=== PATIENT | male | born 1955 | race Hispanic/Latino ===

== ENCOUNTER 2019-06-23 03:59 | Emergency (ER) | payer BC ==
--- NOTE | 2019-06-23 05:22 | Emergency Department Report ---
ED General Adult HPI - General Chief complaint: Dyspnea/Respdistress Stated complaint: HEART ISSUES Time Seen by Provider: 06/23/19 04:57 Source: patient Mode of arrival: Ambulatory Limitations: No Limitations - History of Present Illness Initial comments: Patient is a 64-year-old white male who presents for shortness of breath times today patient has history of coronary artery disease with stent hyperlipidemia patient is offered accident status post there is no hypertension or diabetes patient denies nausea vomiting or diaphoresis no back pain shortness of breath is exacerbated by stress patient rates symptoms at 2/10 at this time advised that his door advised him to present to ED for shortness of breath to rule out [place] patient however has no history of [place] Onset/Timin -: days(s) Severity scale (0 -10): 3 Quality: other (sob ) Improves with: none Worsens with: other (stress anxiety ) Associated Symptoms: shortness of breath - Related Data Allergies Allergy/AdvReac Type Severity Reaction Status Date / Time No Known Allergies Allergy Unverified 06/23/19 04:06 ED Review of Systems ROS: Stated complaint: HEART ISSUES Other details as noted in HPI Constitutional: denies: chills, fever Eyes: denies: eye pain, eye discharge, vision change ENT: denies: ear pain, throat pain Respiratory: shortness of breath. denies: cough, orthopnea, wheezing Cardiovascular: denies: chest pain, palpitations Endocrine: no symptoms reported Gastrointestinal: denies: abdominal pain, nausea, vomiting, diarrhea Genitourinary: denies: urgency, dysuria, frequency, hematuria Musculoskeletal: denies: back pain, joint swelling, arthralgia, myalgia Skin: denies: rash, lesions Neurological: denies: headache, weakness, paresthesias Psychiatric: denies: anxiety, depression Hematological/Lymphatic: denies: easy bleeding, easy bruising ED Past Medical Hx - Past Medical History Previous Medical History?: Yes - Surgical History Past Surgical History?: Yes Additional Surgical History: Heart stents - Social History Smoking Status: Never Smoker Substance Use Type: None ED Physical Exam - General Limitations: No Limitations General appearance: alert, in no apparent distress - Head Head exam: Present: atraumatic, normocephalic - Eye Eye exam: Present: normal appearance, PERRL, EOMI Pupils: Present: normal accommodation - ENT ENT exam: Present: mucous membranes moist, TM's normal bilaterally - Neck Neck exam: Present: normal inspection - Respiratory Respiratory exam: Present: normal lung sounds bilaterally. Absent: respiratory distress, wheezes, rales, rhonchi, stridor, chest wall tenderness, accessory muscle use, decreased breath sounds, prolonged expiratory - Cardiovascular Cardiovascular Exam: Present: regular rate, normal rhythm, normal heart sounds. Absent: systolic murmur, diastolic murmur, rubs, gallop - GI/Abdominal GI/Abdominal exam: Present: soft, normal bowel sounds. Absent: distended, tenderness, guarding, rebound, rigid, bruit, hernia - Rectal Rectal exam: Present: deferred - Extremities Exam Extremities exam: Present: normal inspection, full ROM, normal capillary refill. Absent: tenderness, pedal edema, joint swelling, calf tenderness - Back Exam Back exam: Present: normal inspection, full ROM. Absent: tenderness, CVA tenderness (R), CVA tenderness (L), muscle spasm, paraspinal tenderness, rash noted - Neurological Exam Neurological exam: Present: alert, oriented X3, CN II-XII intact, normal gait, reflexes normal. Absent: motor sensory deficit - Psychiatric Psychiatric exam: Present: normal affect, normal mood - Skin Skin exam: Present: warm, dry, intact, normal color. Absent: rash ED Course Vital Signs 06/23/19 06/23/19 04:03 06:05 Temperature 99.1 F 98.3 F Pulse Rate 104 H 73 Respiratory 20 16 Rate Blood Pressure 124/99 Blood Pressure 142/90 [Right] O2 Sat by Pulse 96 98 Oximetry ED Medical Decision Making - Lab Data Result diagrams: 06/23/19 05:23 06/23/19 05:23 Lab Results 06/23/19 06/23/19 Range/Units 05:23 05:23 WBC 8.9 (4.5-11.0) K/mm3 RBC 5.23 H (3.65-5.03) M/mm3 Hgb 15.7 H (11.8-15.2) gm/dl Hct 45.2 (35.5-45.6) % MCV 86 (84-94) fl MCH 30 (28-32) pg MCHC 35 H (32-34) % RDW 13.9 (13.2-15.2) % Plt Count 202 (140-440) K/mm3 Lymph % (Auto) 16.9 (13.4-35.0) % [place] % (Auto) 5.8 (0.0-7.3) % Eos % (Auto) 1.2 (0.0-4.3) % Baso % (Auto) 0.6 (0.0-1.8) % Lymph # 1.5 (1.2-5.4) K/mm3 [place] # 0.5 (0.0-0.8) K/mm3 Eos # 0.1 (0.0-0.4) K/mm3 Baso # 0.1 (0.0-0.1) K/mm3 Seg Neutrophils % 75.5 H (40.0-70.0) % Seg Neutrophils # 6.7 (1.8-7.7) K/mm3 Sodium 141 (137-145) mmol/L Potassium 4.3 (3.6-5.0) mmol/L Chloride 103.8 (98-107) mmol/L Carbon Dioxide 26 (22-30) mmol/L Anion Gap 16 mmol/L BUN 16 (9-20) mg/dL Creatinine 0.9 (0.8-1.5) mg/dL Estimated GFR > 60 ml/min BUN/Creatinine Ratio 18 % Glucose 132 H (75-100) mg/dL Calcium 9.6 (8.4-10.2) mg/dL Total Bilirubin 0.60 (0.1-1.2) mg/dL AST 31 (5-40) units/L ALT 70 H (7-56) units/L Alkaline Phosphatase 94 (35-129) units/L Troponin T < 0.010 (0.00-0.029) ng/mL Total Protein 7.0 (6.3-8.2) g/dL Albumin 4.5 (3.9-5) g/dL Albumin/Globulin Ratio 1.8 % - EKG Data EKG shows normal: sinus rhythm, axis, intervals, QRS complexes, ST-T waves Rate: normal - EKG Data When compared to previous EKG there are: previous EKG unavailable (no previous) Interpretation: normal EKG (EKG interp by ed attending NSR No ST Elevated [place], ) - Radiology Data Radiology results: report reviewed, image reviewed Ordering Physician: HANNAH PICHARDO MD Date of Service: 06/23/19 Procedure(s): XR chest routine 2V Accession Number(s): [id number] cc: HANNAH PICHARDO MD Fluoro Time In Minutes: CHEST 2 VIEWS INDICATION / CLINICAL INFORMATION: JULISA/SOB. COMPARISON: None available. FINDINGS: SUPPORT DEVICES: None. HEART / MEDIASTINUM: The heart size and pulmonary vasculature are normal. LUNGS / PLEURA: No significant pulmonary or pleural abnormality. No pneumothorax. ADDITIONAL FINDINGS: No significant additional findings. IMPRESSION: No acute findings. Signer Name: Jean Marie Black MD Signed: 06/23/2019 6:10 AM Workstation Name: [id number] Transcribed By: RT Dictated By: Jean Marie Black MD Electronically Authenticated By: Jean Marie Black MD Signed Date/Time: 06/23/19609 DD/ 8 TD/TT: - Medical Decision Making Pt denies cp or sob this time states symptoms relieved to 0/10 denies SI or HI, EKG : NSR , CXR: normal trop <0.01 , heart score: 1, Labs: ALT: 70, Heart score: 1 ADRIANA score : 2 plan: pt denies cp no sob no n/v no back pain no dizziness no headache no sob no diaphoresis , pt advises that he will follow up with his pcp tomorrow, pt dc'd to home in stable condition at this. Critical care attestation.: If time is entered above; I have spent that time in minutes in the direct care of this critically ill patient, excluding procedure time. ED Disposition Clinical Impression: Stress Disposition: DC-01 TO HOME OR SELFCARE Is pt being admited?: No Does the pt Need Aspirin: No Condition: Stable Instructions: Stress (ED) Referrals: PRIMARY CARE, [Primary Care Provider] - [facility] Forms: Work/School Release Form(ED) Time of Disposition: 07:44
[2019-06-23 06:07] VITALS: BP 142/90
--- NOTE | 2019-06-23 06:15 | XRay Report ---
CHEST 2 VIEWS INDICATION / CLINICAL INFORMATION: JULISA/SOB. COMPARISON: None available. FINDINGS: SUPPORT DEVICES: None. HEART / MEDIASTINUM: The heart size and pulmonary vasculature are normal. LUNGS / PLEURA: No significant pulmonary or pleural abnormality. No pneumothorax. ADDITIONAL FINDINGS: No significant additional findings. IMPRESSION: No acute findings. Signer Name: Jean Marie Black MD Signed: 06/23/2019 6:10 AM Workstation Name: [id number]
[2019-06-23 06:57] LABS: Basophils # (Auto) 0.1 K/mm3 (0.0-0.1); Basophils % (Auto) 0.6 % (0.0-1.8); Eosinophils # (Auto) 0.1 K/mm3 (0.0-0.4); Eosinophils % (Auto) 1.2 % (0.0-4.3); Hematocrit 45.2 % (35.5-45.6); Hemoglobin 15.7 gm/dl (11.8-15.2); Lymphocytes # (Auto) 1.5 K/mm3 (1.2-5.4); Lymphocytes % (Auto) 16.9 % (13.4-35.0); Mean Corpuscular HGB Conc 35 % (32-34); Mean Corpuscular Volume 86 fl (84-94); Monocytes # (Auto) 0.5 K/mm3 (0.0-0.8); Monocytes % (Auto) 5.8 % (0.0-7.3); Platelet Count 202 K/mm3 (140-440); Red Blood Count 5.23 M/mm3 (3.65-5.03); Red Cell Distribution Width 13.9 % (13.2-15.2)
[2019-06-23 07:22] LABS: Alanine Aminotransferase 70 units/L (7-56); Albumin 4.5 g/dL (3.9-5); BUN/Creatinine Ratio 18; Blood Urea Nitrogen 16 mg/dL (9-20); Calcium 9.6 mg/dL (8.4-10.2); Hemolysis Index 22
== END 2019-06-23 07:50 | disposition home or self-care (01) ==
LOC: ED 03:59
DX: F43.9 Reaction to severe stress, unspecified (principal); I25.10 Atherosclerotic heart disease of native coronary artery without angina pectoris; Z95.1 Presence of aortocoronary bypass graft; E78.5 Hyperlipidemia, unspecified
CPT/HCPCS: 36415; 71046; 80053; 84484; 85025; 93005; 93010; 99283